=== PATIENT | male | born 1975 | race Caucasian/White ===

== ENCOUNTER 2023-05-11 21:09 | Observation (INO) | payer BC ==
[2023-05-11 22:17] LABS: Basophils # (A) 0.1 k/uL (0-0.2); Basophils % (A) 1 %; Eosinophils # (A) 0.4 k/uL (0-0.7); Eosinophils % (A) 7 %; HCT 38.1 % (39.0-53.0); Lymphocytes # (A) 1.2 k/uL (1.0-4.8); Lymphocytes % (A) 19 %; MCH 30.6 pg (25.0-35.0); MCHC 34.2 g/dL (31.0-37.0); MCV 89.2 fL (80.0-100.0); Mean Platelet Volume 8.9; Monocytes # (A) 0.4 k/uL (0-1.0); Monocytes % (A) 6 %; Neutrophils # (A) 4.2 k/uL (1.3-7.7); Neutrophils % (A) 65 %; Platelet Count 208 k/uL (150-450); RBC 4.27 m/uL (4.30-5.90); RDW 12.2 % (11.5-15.5); WBC 6.4 k/uL (3.8-10.6)
[2023-05-11 22:29] LABS: ALT 27 U/L (4-49); African American GFR (CKD) 25 (>60 ml/min/1.73 sqM); Albumin 4.1 g/dL (3.5-5.0); Anion Gap 13 mmol/L; Blood Urea Nitrogen 67 mg/dL (9-20); Calcium 8.9 mg/dL (8.4-10.2); Carbon Dioxide 17 mmol/L (22-30); Chloride 109 mmol/L (98-107); Glucose 186 mg/dL (74-99); Non-African American GFR(CKD) 22 (>60 ml/min/1.73 sqM); Sodium 139 mmol/L (137-145); Total Bilirubin 0.5 mg/dL (0.2-1.3); Total Protein 7.1 g/dL (6.3-8.2)
[2023-05-11 22:34] LABS: AST 32 U/L (17-59); Alkaline Phosphatase 106 U/L (38-126); Potassium 5.9 mmol/L (3.5-5.1)
[2023-05-11] MEDS ORDERED: SODIUM CHLORIDE 0.9% 1,000 ML IV STA (23:17)
--- NOTE | 2023-05-11 23:17 | ED ---
General Adult HPI - General Source: patient Mode of arrival: ambulatory Limitations: no limitations <Jaylon Harper - Last Filed: 05/11/23 23:18> <Luis Eduardo Lobo - Last Filed: 05/12/23 02:48> - General Chief complaint: Recheck/Abnormal Lab/Rx Stated complaint: Abn Labs, High Potassium Time Seen by Provider: 05/11/23 23:18 - History of Present Illness Initial comments: 48-year-old male presenting to the ED with a chief complaint of abnormal labs. Patient states that he was at his PCPs office getting regular blood work performed and was told that his potassium was high and also was told that his kidney function was decreased and was advised to present to the ED for further evaluation. Patient states that he otherwise feels well and does not have any symptoms and would not have otherwise came to the ED. (Jaylon Harper) Dictation was produced using [employer] dictation software. please excuse any grammatical, word or spelling errors. Chief Complaint: 48-year-old male presents to the ER for abnormal outpatient labs History of Present Illness: Is a 48-year-old male presents to the emergency room for abnormal outpatient labs. Patient denies any symptoms at this time. This morning he had a follow-up appointment with his primary care doctor. He had blood drawn. Patient was called at 7 PM by his primary care doctor told to come to the ER for elevated potassium with the level of 7. Patient has any bradycardia he's been checking his heart rate at home. He has no symptoms whatsoever. Denies any lightheadedness or any pain complaints. Patient denies any use of diuretics The ROS documented in this emergency department record has been reviewed and c onfirmed by me. Those systems with pertinent positive or negative responses have been documented in the HPI. All other systems are other negative and/or noncontributory. (Luis Eduardo Lobo) - Related Data Allergies Allergy/AdvReac Type Severity Reaction Status Date / Time morphine Allergy Itching Verified 05/11/23 21:23 Review of Systems ROS Other: All systems not noted in ROS Statement are negative. <Jaylon Harper - Last Filed: 05/11/23 23:18> ROS Other: All systems not noted in ROS Statement are negative. <Luis Eduardo Lobo - Last Filed: 05/12/23 02:48> ROS Statement: Those systems with pertinent positive or pertinent negative responses have been documented in the HPI. Past Medical History Past Medical History: Diabetes Mellitus, Hypertension History of Any Multi-Drug Resistant Organisms: None Reported Past Surgical History: Cholecystectomy Past Psychological History: No Psychological Hx Reported Smoking Status: Vaper Past Alcohol Use History: None Reported Past Drug Use History: None Reported <Jaylon Harper - Last Filed: 05/11/23 23:18> General Exam Limitations: no limitations General appearance: alert, in no apparent distress Eye exam: Present: normal appearance Extremities exam: Present: normal inspection Back exam: Present: normal inspection <Jaylon Harper - Last Filed: 05/11/23 23:18> <Luis Eduardo Lobo - Last Filed: 05/12/23 02:48> - General Exam Comments Initial Comments: PHYSICAL EXAM: General Impression: Alert and oriented x3, not in acute distress HEENT: Normocephalic atraumatic, extra-ocular movements intact, pupils equal and reactive to light bilaterally, mucous membranes moist. Cardiovascular: Heart regular rate and rhythm Chest: Able to complete full sentences, no retractions, no tachypnea Abdomen: abdomen soft, non-tender, non-distended, no organomegaly Musculoskeletal: Pulses present and equal in all extremities, no peripheral edema Motor: no focal deficits noted Neurological: CN II-XII grossly intact, no focal motor or sensory deficits noted Skin: Intact with no visualized rashes Psych: Normal affect and mood (Luis Eduardo Lobo) Course Vital Signs 05/11/23 21:20 Temperature 98.8 F Pulse Rate 86 Respiratory 18 Rate Blood Pressure 222/132 O2 Sat by Pulse 99 Oximetry EKG Findings - EKG Comments: EKG Findings:: My EKG interpretation: Ventricular rate 82, sinus rhythm, MS interval 162, QRS 90, QTC 390. No MS prolongation, no QTC prolongation, no ST or T-wave changes noted. Overall, this EKG is unremarkable <Luis Eduardo Lobo - Last Filed: 05/12/23 02:48> Medical Decision Making - Lab Data Result diagrams: 05/11/23 21:54 05/11/23 21:54 <Jaylon Harper - Last Filed: 05/11/23 23:18> - Lab Data Result diagrams: 05/11/23 21:54 05/12/23 00:34 <YamilLuis Eduardo D - Last Filed: 05/12/23 02:48> - Medical Decision Making Was pt. sent in by a medical professional or institution ([facility], [facility]ER[facility], urgent care, hospital, or residential...) When possible be specific @ -No Did you speak to anyone other than the patient for history (EMS, parent, family, police, friend...)? What history was obtained from this source @ -No Did you review nursing and triage notes (agree or disagree)? Why? @ -I reviewed and agree with nursing and triage notes Were old charts reviewed (outside hosp., previous admission, EMS record, old E KG, old radiological studies, urgent care reports/EKG's, residential records)? Report findings @ -No old charts were reviewed Differential Diagnosis (chest pain, altered mental status, abdominal pain women, abdominal pain men, vaginal bleeding, musculoskeletal, weakness, fever, dyspnea, syncope, headache, dizziness, GI bleed, back pain, seizure, CVA, palpatations, mental health)? @ -not applicable EKG interpreted by me (3pts min.). @ -None done X-rays interpreted by me (1pt min.). @ -None done CT interpreted by me (1pt min.). @ -None done U/S interpreted by me (1pt. min.). @ -None done What testing was considered but not performed or refused? (CT, X-rays, U/S, labs)? Why? @ -None What meds were considered but not given or refused? Why? @ -None Did you discuss the management of the patient with other professionals (professionals i.e. [facility], [facility]ERTER, lab, RT, psych nurse, director social, overhauler bus truck, teacher, training and development officer, protective services case worker)? Give summary @ -No Was smoking cessation discussed for >3mins.? @ -No Was critical care preformed (if so, how long)? @ -No Were there social determinants of health that impacted care today? How? (Homelessness, low income, unemployed, alcoholism, drug addiction, transportation, low edu. Level, literacy, decrease access to med. care, [facility], rehab)? @ -No Was there de-escalation of care discussed even if they declined (Discuss DNR or withdrawal of care, Hospice)? DNR status @ -No What co-morbidities impacted this encounter? (DM, HTN, Smoking, COPD, CAD, Canc er, CVA, ARF, Chemo, Hep., AIDS, mental health diagnosis, sleep apnea, morbid obesity)? @ -None Was patient admitted / discharged? Hospital course, mention meds given and route, prescriptions, significant lab abnormalities, going to OR and other pertinent info. @ -48-year-old male presents emergency Department with abnormal outpatient labs. He is told that he had a potassium of 7.0. He has been having worsening kidney function over the last several months. Laboratory evaluation obtained. CBC unremarkable. Potassium level V.9 with slight hemolysis. He does have a mild non-gap acidosis. Renal function is significantly elevated. No old labs for comparison. Repeat potassium is 5.9. Disposition options are discussed. Patient agreeable for observation admission for potassium monitoring along with nephrology consultation. Undiagnosed new problem with uncertain prognosis? @ -No Drug Therapy requiring intensive monitoring for toxicity (Heparin, Nitro, Insulin, Cardizem)? @ -No Were any procedures done? @ -No Diagnosis/symptom? Acute, or Chronic, or Acute on Chronic? Uncomplicated (without systemic symptoms) or Complicated (systemic symptoms)? @ -Hyperkalemia, danii Side effects of treatment? @ -No Exacerbation, Progression, or Severe Exacerbation? @ -No Poses a threat to life or bodily function? How? (Chest pain, [place], DC, pneumonia, PE, COPD, DKA, ARF, appy, cholecystitis, CVA, Diverticulitis, Homicidal, Suicidal, threat to staff... and all critical care pts) @ -yes (Luis Eduardo Lobo) - Lab Data Lab Results 05/11/23 05/11/23 05/12/23 Range/Units 21:54 21:54 00:34 WBC 6.4 (3.8-10.6) k/uL RBC 4.27 L (4.30-5.90) m/uL Hgb 13.0 (13.0-17.5) gm/dL Hct 38.1 L (39.0-53.0) % MCV 89.2 (80.0-100.0) fL MCH 30.6 (25.0-35.0) pg MCHC 34.2 (31.0-37.0) g/dL RDW 12.2 (11.5-15.5) % Plt Count 208 (150-450) k/uL MPV 8.9 Neutrophils % 65 % Lymphocytes % 19 % Monocytes % 6 % Eosinophils % 7 % Basophils % 1 % Neutrophils # 4.2 (1.3-7.7) k/uL Lymphocytes # 1.2 (1.0-4.8) k/uL Monocytes # 0.4 (0-1.0) k/uL Eosinophils # 0.4 (0-0.7) k/uL Basophils # 0.1 (0-0.2) k/uL Sodium 139 (137-145) mmol/L Potassium 5.9 H 5.9 H (3.5-5.1) mmol/L Chloride 109 H (98-107) mmol/L Carbon Dioxide 17 L (22-30) mmol/L Anion Gap 13 mmol/L BUN 67 H (9-20) mg/dL Creatinine 3.22 H (0.66-1.25) mg/dL Est GFR (CKD-EPI)AfAm 25 (>60 ml/min/1.73 sqM) Est GFR (CKD-EPI)NonAf 22 (>60 ml/min/1.73 sqM) Glucose 186 H (74-99) mg/dL Calcium 8.9 (8.4-10.2) mg/dL Total Bilirubin 0.5 (0.2-1.3) mg/dL AST 32 (17-59) U/L ALT 27 (4-49) U/L Alkaline Phosphatase 106 (38-126) U/L Total Protein 7.1 (6.3-8.2) g/dL Albumin 4.1 (3.5-5.0) g/dL Disposition <Jaylon Harper - Last Filed: 05/11/23 23:18> Decision Time: 02:00 <Luis Eduardo Lobo - Last Filed: 05/12/23 02:48> Clinical Impression: DANII (acute kidney injury) Disposition: ADMITTED IP TO THIS HOSP Condition: Fair Referrals: Timothy Fox MD [Primary Care Provider] - 1-2 days
[2023-05-12 01:32] LABS: Potassium 5.9 mmol/L (3.5-5.1)
[2023-05-12] MEDS ORDERED: SODIUM ZIRCONIUM CYCLOSILICATE 10 GM PACKET PO ONE (02:22)
[2023-05-12] MEDS ORDERED: FUROSEMIDE 10 MG/ML 2 ML VIAL IV STA (02:22)
[2023-05-12] MEDS ORDERED: NALOXONE 0.4 MG/ML 1 ML VIAL IV PRN (02:45)
[2023-05-12] MEDS: SODIUM CHLORIDE 0.9% 1,000 ML IV SCH (03:20)
[2023-05-12 06:34] LABS: Glucose,Whole Blood 88 mg/dL (70-110)
[2023-05-12] MEDS ORDERED: ACETAMINOPHEN TAB 325 MG TAB PO PRN (09:26)
[2023-05-12] MEDS ORDERED: ONDANSETRON 4 MG/2 ML VIAL IVP PRN (09:26)
[2023-05-12] MEDS ORDERED: SODIUM BICARB 8.4% 50 ML SYR (1 MEQ/ML) IV ONE (09:29)
[2023-05-12] MEDS ORDERED: CALCIUM GLUCONATE IN NACL 1 GM in SALINE 1 100ML.BAG IVPB ONE (09:29)
[2023-05-12] MEDS ORDERED: DEXTROSE 50% SYRINGE 50 ML IVP ONE (09:29)
[2023-05-12] MEDS ORDERED: INSULIN REGULAR 100 UNIT/ML VIAL (IV) IV ONE (09:29)
[2023-05-12 10:24] LABS: ALT 26 U/L (4-49); AST 26 U/L (17-59); African American GFR (CKD) 26 (>60 ml/min/1.73 sqM); Albumin 3.5 g/dL (3.5-5.0); Albumin/Globulin Ratio 1.3; Alkaline Phosphatase 95 U/L (38-126); Anion Gap 11 mmol/L; Blood Urea Nitrogen 68 mg/dL (9-20); Calcium 8.5 mg/dL (8.4-10.2); Carbon Dioxide 17 mmol/L (22-30); Chloride 112 mmol/L (98-107); Globulin 2.8 g/dL; Glucose 135 mg/dL (74-99); Magnesium 1.3 mg/dL (1.6-2.3); Non-African American GFR(CKD) 22 (>60 ml/min/1.73 sqM); Sodium 140 mmol/L (137-145); Total Bilirubin 0.3 mg/dL (0.2-1.3); Total Protein 6.3 g/dL (6.3-8.2)
--- NOTE | 2023-05-12 11:21 | US ---
EXAMINATION TYPE: US kidneys/renal and bladder DATE OF EXAM: 05/12/2023 COMPARISON: NONE CLINICAL INDICATION: Male, 48 years old with history of Renal failure; Abnormal labs EXAM MEASUREMENTS: Right Kidney: 10.4 x 5.7 x 5.9 cm Left Kidney: 12.1 x 5.6 x 6.0 cm *Pt morbidly obese- difficult to penetrate* Right Kidney: No evidence of hydro- possible "sweat sign" anterior to kidney Left Kidney: No evidence of hydro- possible "sweat sign" anterior to kidney Bladder: Unable to visualize- pt voided IMPRESSION: 1. Subtle secondary changes to suggest underlying renal failure. 2. No acute ultrasound abnormality identified.
[2023-05-12 11:40] LABS: African American GFR (CKD) 27 (>60 ml/min/1.73 sqM); Anion Gap 10 mmol/L; Blood Urea Nitrogen 67 mg/dL (9-20); Calcium 8.3 mg/dL (8.4-10.2); Carbon Dioxide 18 mmol/L (22-30); Chloride 111 mmol/L (98-107); Glucose 165 mg/dL (74-99); Non-African American GFR(CKD) 23 (>60 ml/min/1.73 sqM); Potassium 5.2 mmol/L (3.5-5.1); Sodium 139 mmol/L (137-145)
[2023-05-12 11:45] LABS: Glucose,Whole Blood 139 mg/dL (70-110)
--- NOTE | 2023-05-12 12:03 | P.NPCON ---
History of Present Illness - Reason for Consult acute renal failure - History of Present Illness Patient is a 48-year-old male with history of hypertension diagnosed about 3-4 years ago. Patient states that he has had a week kidney function for about 1-2 years. He was advised to come into the hospital as his renal function had worsened and potassium was elevated at 5.9 mg/L. Serum creatinine was 3.2 and it is down to 3.0 today. Previous labs not available for comparison however patient states that his kidney function was around 30 (eGFR) about 3-6 months ago. No history of use of NSAIDs No history of nausea vomiting abdominal pain or diarrhea No significant prostatic issues No family history of kidney diseases Patient has not seen a electronic publishing specialist previously. Blood pressure was high on admission. Ultrasound shows no evidence of obstruction. Kidneys are fairly good sized. Review of Systems As per HPI other systems negative Past Medical History Past Medical History: Diabetes Mellitus, Hypertension History of Any Multi-Drug Resistant Organisms: None Reported Past Surgical History: Cholecystectomy Past Psychological History: No Psychological Hx Reported Smoking Status: Vaper Past Alcohol Use History: None Reported Past Drug Use History: None Reported Medications and Allergies Home Medications Medication Instructions Recorded Confirmed Type Atorvastatin [Lipitor] 10 mg PO DAILY 05/12/23 05/12/23 History Insulin Regular, Human [Novolin R] 0.01 unit SQ-PUMP CONTINUOUS 05/12/23 05/12/23 History Metoprolol Succinate (ER) [Toprol 50 mg PO DAILY 05/12/23 05/12/23 History Xl] Triamterene-Hctz 37.5-25Mg 1 cap PO DAILY 05/12/23 05/12/23 History [Dyazide 37.5-25 Capsule] lisinopriL 40 mg PO DAILY 05/12/23 05/12/23 History Allergies Allergy/AdvReac Type Severity Reaction Status Date / Time morphine Allergy Itching Verified 05/12/23 11:28 Physical Exam Vitals: Vital Signs Temp Pulse Pulse Resp BP BP Pulse Ox 05/12/23 07:00 98 F 69 20 131/76 97 05/12/23 04:45 97.7 F 74 16 163/80 97 05/12/23 03:21 98.8 F 73 18 174/81 98 05/11/23 21:20 98.8 F 86 18 222/132 99 Intake and Output 05/11/23 05/12/2305/12/23 22:59 06:59 14:59 Intake Total 240 Balance 240 Intake: Oral 240 Other: # Voids 1 Weight 142.428 kg 142.428 kg Patient is awake, comfortable, no acute distress Examination of the heart S1 and S2 Examination of the lungs bilateral breath sounds are heard Abdomen is soft nontender obese Examination of lower extremity shows no evidence of edema DEPOSITION OPERATOR exam grossly intact Results - Lab Results Most recent lab results Calcium 8.3 mg/dL (8.4-10.2) L 05/12/23 10:43 Magnesium 1.3 mg/dL (1.6-2.3) L 05/12/23 00:34 05/11/23 21:54 05/12/23 10:43 Assessment and Plan Assessment: 1. Acute kidney injury most likely ATN. No evidence of obstruction noted on ultrasound. Check urine analysis to rule out any underlying GN. 2. Hypertension, uncontrolled on admission, now improved. 3. Chronic kidney disease stage III. Baseline renal function not available. A GFR possibly around 30 mL/min per patient. 4. Hyperkalemia associated with acute kidney injury in the setting of use of AC E inhibitor's and metabolic acidosis. 5. Hypomagnesemia Plan: Continue to hold lisinopril Low potassium diet Add oral sodium bicarb Check urine analysis Patient will need close follow-up for acute kidney injury and chronic kidney disease. We will also try to obtain previous labs to establish patient's baseline renal function. Thank you for the consultation. We will continue to follow the patient with you during his hospitalization.
[2023-05-12] MEDS: SODIUM BICARBONATE TAB 650 MG TAB PO SCH ×2 (12:53→20:14)
[2023-05-12] MEDS: METOPROLOL SUCCINATE (ER) 50 MG TAB.ER.24H PO SCH (12:53)
[2023-05-12] MEDS ORDERED: DEXTROSE 50% SYRINGE 50 ML IVP PRN ×2 (13:00)
--- NOTE | 2023-05-12 13:00 | P.HPIM ---
History of Present Illness H&P Date: 05/12/23 Chief Complaint: Abnormal labs * 48-year-old gentleman with past medical history significant for diabetes mellitus on Pump , hypertension, previous history of cholecystectomy presents to the emergency department sent in for PCP office for abnormal blood work. Patient was asked to come to the ED because of elevated potassium levels and impaired kidney function. Patient denies of any acute issues. At the time of presentation in ED he was noted to have elevated blood pressures soft 2 22 x 1 32, with a heart rate of 86 * Blood work initiated in ED included CBC which were WBC of 6.4 hemoglobin 13 platelet count of 208 * Serum sodium of 139 potassium of 5.9, chloride 109, [place] 17 B UN 67 creatinine 3.22 * Liver profile was obtained which showed AST of 32 AST 27 total protein 7.1 albumin 4.1 * While in ER patient was given 1 L of fluid bolus, patient given low, as well a s Lasix * he admitted as observation with consultation obtained from nephrology REVIEW OF SYSTEMS: CONSTITUTIONAL: No fever, no malaise, no fatigue. HEENT: No recent visual problems or hearing problems. Denied any sore throat. CARDIOVASCULAR: No chest pain, orthopnea, PND, no palpitations, no syncope. PULMONARY: No shortness of breath, no cough, no hemoptysis. GASTROINTESTINAL: No diarrhea, no nausea, no vomiting, no abdominal pain. NEUROLOGICAL: No headaches, no weakness, no numbness. HEMATOLOGICAL: Denies any bleeding or petechiae. GENITOURINARY: Denies any burning micturition, frequency, or urgency. MUSCULOSKELETAL/RHEUMATOLOGICAL: Denies any joint pain, swelling, or any muscle pain. ENDOCRINE: Denies any polyuria or polydipsia. PHYSICAL EXAMINATION: GENERAL: The patient is alert and oriented x3, not in any acute distress. Well developed, well nourished. Obese HEENT: Pupils are round and equally reacting to light. EOMI. CARDIOVASCULAR: S1 and S2 present. No murmurs, rubs, or gallops. PULMONARY: Chest is clear to auscultation, no wheezing or crackles. ABDOMEN: Soft, nontender, nondistended, normoactive bowel sounds. No palpable organomegaly. MUSCULOSKELETAL: No joint swelling or deformity. EXTREMITIES: No cyanosis, clubbing, or pedal edema. NEUROLOGICAL: Gross neurological examination did not reveal any focal deficits. SKIN: No rashes. Past Medical History Past Medical History: Diabetes Mellitus, Hypertension History of Any Multi-Drug Resistant Organisms: None Reported Past Surgical History: Cholecystectomy Past Psychological History: No Psychological Hx Reported Smoking Status: Vaper Past Alcohol Use History: None Reported Past Drug Use History: None Reported Medications and Allergies Home Medications Medication Instructions Recorded Confirmed Type Atorvastatin [Lipitor] 10 mg PO DAILY 05/12/23 05/12/23 History Insulin Regular, Human [Novolin R] 0.01 unit SQ-PUMP CONTINUOUS 05/12/23 05/12/23 History Metoprolol Succinate (ER) [Toprol 50 mg PO DAILY 05/12/23 05/12/23 History Xl] Triamterene-Hctz 37.5-25Mg 1 cap PO DAILY 05/12/23 05/12/23 History [Dyazide 37.5-25 Capsule] lisinopriL 40 mg PO DAILY 05/12/23 05/12/23 History Allergies Allergy/AdvReac Type Severity Reaction Status Date / Time morphine Allergy Itching Verified 05/12/23 11:28 Physical Exam Vitals: Vital Signs Temp Pulse Pulse Resp BP BP Pulse Ox 05/12/23 07:00 98 F 69 20 131/76 97 05/12/23 04:45 97.7 F 74 16 163/80 97 05/12/23 03:21 98.8 F 73 18 174/81 98 05/11/23 21:20 98.8 F 86 18 222/132 99 Intake and Output 05/11/23 05/12/23 05/12/23 22:59 06:59 14:59 Other: # Voids 1 Weight 142.428 kg 142.428 kg Results CBC & Chem 7: 05/11/23 21:54 05/12/23 10:43 Labs: Abnormal Lab Results - Last 24 Hours (Table) 05/11/23 05/11/23 05/12/23 Range/Units 21:54 21:54 00:34 RBC 4.27 L (4.30-5.90) m/uL Hct 38.1 L (39.0-53.0) % Potassium 5.9 H 5.9 H (3.5-5.1) mmol/L Chloride 109 H (98-107) mmol/L Carbon Dioxide 17 L (22-30) mmol/L BUN 67 H (9-20) mg/dL Creatinine 3.22 H (0.66-1.25) mg/dL Glucose 186 H (74-99) mg/dL Thrombosis Risk Factor Assmnt - DVT/VTE Prophylaxis DVT/VTE Prophylaxis: Mechanical Prophylaxis ordered Assessment and Plan Assessment: Assessment and plan Acute renal failure Hyperkalemia Hypertensive urgency History of diabetes mellitus 2 * In regards to renal failure, continue to monitor intake and output, bladder scan ordered, results unknown ordered, follow-up on renal profile, nephrology consulted * In regards to hyperkalemia, patient given Lasix, lokelma follow-up potassium ordered * In regards to hypertensive urgency patient given a dose of Lasix in ED, follow blood pressure improved * In regards to diabetes mellitus follow-up HbA1c ordered Accu-Cheks before meals at bedtime continue patient on correctional insulin * CODE STATUS is full code Time with Patient: Greater than 30
[2023-05-12 17:37] LABS: Glucose,Whole Blood 80 mg/dL (70-110)
[2023-05-12] MEDS: INSULIN ASPART (NovoLOG) 100 UNIT/ML VIAL SQ SCH ×2 (18:18→20:59)
[2023-05-12 18:54] LABS: RBC,Urine <1 /hpf (0-5); WBC,Urine 1 /hpf (0-5)
[2023-05-12 18:55] LABS: Appearance,Urine Clear (Clear); Color,Urine Colorless; Specific Gravity,Urine 1.015 (1.001-1.035)
[2023-05-12 18:56] LABS: Bilirubin,Urine Negative (Negative); Blood,Urine Small (Negative); Glucose,Urine (UA) Negative (Negative); Ketones,Urine Negative (Negative); Leukocyte Esterase,Urine Negative (Negative); Nitrite,Urine Negative (Negative); Protein,Urine 2+ (Negative); Urobilinogen,Urine <2.0 mg/dL (<2.0)
[2023-05-12 20:58] LABS: Glucose,Whole Blood 120 mg/dL (70-110)
[2023-05-13] MEDS: SODIUM CHLORIDE 0.9% 1,000 ML IV SCH (03:09)
[2023-05-13 06:14] LABS: Glucose,Whole Blood 115 mg/dL (70-110)
[2023-05-13] MEDS: INSULIN ASPART (NovoLOG) 100 UNIT/ML VIAL SQ SCH ×2 (06:18→13:48)
[2023-05-13] MEDS: SODIUM BICARBONATE TAB 650 MG TAB PO SCH (08:37)
[2023-05-13] MEDS: METOPROLOL SUCCINATE (ER) 50 MG TAB.ER.24H PO SCH (08:37)
[2023-05-13 09:46] LABS: Basophils # (A) 0.06 X 10*3/uL (0.00-0.10); Basophils % (A) 1.1 %; Eosinophils # (A) 0.41 X 10*3/uL (0.04-0.35); Eosinophils % (A) 7.2 %; HCT 35.4 % (39.6-50.0); HGB 11.8 g/dL (13.0-17.0); Lymphocytes % (A) 21.2 %; MCH 29.4 pg (27.0-32.0); MCHC 33.3 g/dL (32.0-37.0); MCV 88.3 FL (80.0-97.0); Mean Platelet Volume 12.1 FL (9.5-12.2); Monocytes # (A) 0.57 X 10*3/uL (0.20-1.00); Monocytes % (A) 10.1 %; NRBC Per 100 WBC 0 X 10*3/uL (0.00-0.01); Neutrophils # (A) 3.39 X 10*3/uL (1.80-7.70); Neutrophils % (A) 59.9 %; Platelet Count 199 X 10*3/uL (140-440); RBC 4.01 X 10*6/uL (4.40-5.60); RDW 12.1 % (11.5-14.5); WBC 5.66 X 10*3/uL (4.50-10.00)
[2023-05-13 11:45] LABS: Glucose,Whole Blood 172 mg/dL (70-110)
--- NOTE | 2023-05-13 12:18 | P.PN ---
Subjective Patient is seen for follow-up for acute kidney injury. He does have underlying chronic kidney disease however previous labs are not available for comparison. Workup showed 2+ proteinuria on UA. Currently maintained on IV fluids. Labs are pending from today. Patient wants to go home. Objective - Vital Signs Vital signs: Vital Signs Temp 98.2 F 05/13/23 07:00 Pulse 76 05/13/23 07:00 Resp 18 05/13/23 07:00 BP 163/83 05/13/23 07:00 Pulse Ox 97 05/13/23 07:00 FiO2 Intake & Output 05/12/23 05/13/23 05/13/23 18:59 06:59 18:59 Intake Total 720 240 Balance 720 240 Intake: Oral 720 240 Other: # Voids 1 1 - Exam Patient is awake, comfortable, no acute distress Examination of the heart S1 and S2 Examination of the lungs bilateral breath sounds are heard Abdomen is soft nontender obese Examination of lower extremity shows no evidence of edema EQUIPMENT SUPERINTENDENT exam grossly intact - Labs CBC & Chem 7: 05/13/23 05:59 05/12/23 10:43 Labs: Abnormal Lab Results - Last 24 Hours (Table) 05/12/23 05/12/23 05/12/23 Range/Units 10:43 17:27 20:56 RBC (4.40-5.60) X 10*6/uL Hgb (13.0-17.0) g/dL Hct (39.6-50.0) % Eosinophils # (0.04-0.35) X 10*3/uL POC Glucose (mg/dL) 120 H (70-110) mg/dL Hemoglobin A1c 7.9 H (<=6.0) % Urine Protein 2+ H (Negative) 05/13/23 05/13/23 05/13/23 Range/Units 05:59 06:12 11:43 RBC 4.01 L (4.40-5.60) X 10*6/uL Hgb 11.8 L (13.0-17.0) g/dL Hct 35.4 L (39.6-50.0) % Eosinophils # 0.41 H (0.04-0.35) X 10*3/uL POC Glucose (mg/dL) 115 H 172 H (70-110) mg/dL Hemoglobin A1c (<=6.0) % Urine Protein (Negative) Assessment and Plan Assessment: 1. Acute kidney injury most likely ATN on top of underlying GN given the significant proteinuria. No evidence of obstruction noted on ultrasound. . 2. Hypertension, uncontrolled on admission, now improved. 3. Chronic kidney disease stage III. Baseline renal function not available. A GFR possibly around 30 mL/min per patient. 4. Hyperkalemia associated with acute kidney injury in the setting of use of ALEKSANDR inhibitor's and metabolic acidosis. 5. Hypomagnesemia Plan: Continue to hold lisinopril Low potassium diet Continue oral sodium bicarb Check serologies for workup of proteinuria Patient can be discharged from nephrology standpoint and follow-up as outpatient in about 1 week's time. Possible need for kidney biopsy was discussed with the patient. We will also try to obtain previous labs from PCP to assess patient's baseline renal function.
[2023-05-13 12:47] LABS: Blood Urea Nitrogen 59.4 mg/dL (9.0-27.0); Calcium 8.7 mg/dL (8.7-10.3); Carbon Dioxide 18.8 mmol/L (21.6-31.8); Chloride 109 mmol/L (96-109); Glucose 115 mg/dL (70-110); Potassium 5.4 mmol/L (3.5-5.5); Sodium 138 mmol/L (135-145)
[2023-05-13] MEDS ORDERED: DEXTROSE 50% SYRINGE 50 ML IVP ONE (12:49)
[2023-05-13] MEDS ORDERED: INSULIN REGULAR 100 UNIT/ML VIAL (IV) IV ONE (12:49)
[2023-05-13] MEDS ORDERED: SODIUM BICARB 8.4% 50 ML SYR (1 MEQ/ML) IV ONE (12:49)
--- NOTE | 2023-05-13 12:53 | P.PN ---
Subjective Progress Note Date: 05/13/23 * 48-year-old gentleman with past medical history significant for diabetes mellitus on Pump , hypertension, previous history of cholecystectomy presents to the emergency department sent in for PCP office for abnormal blood work. Patient was asked to come to the ED because of elevated potassium levels and impaired kidney function. Patient denies of any acute issues. At the time of presentation in ED he was noted to have elevated blood pressures soft 2 22 x 1 32, with a heart rate of 86 * Blood work initiated in ED included CBC which were WBC of 6.4 hemoglobin 13 platelet count of 208 * Serum sodium of 139 potassium of 5.9, chloride 109, [place] 17 B UN 67 creatinine 3.22 * Liver profile was obtained which showed AST of 32 AST 27 total protein 7.1 albumin 4.1 * While in ER patient was given 1 L of fluid bolus, patient given low, as well as Lasix * he admitted as observation with consultation obtained from nephrology * 05/13/2023: Patient seen and evaluated bedside, care plan discussed with patient. Follow-up blood work reviewed sodium 138 potassium 5.4 carbon dioxide 18 BUNs 15 and creatinine 3 blood glucose under and 15 calcium 8.7, patient to be given insulin, dextrose, sodium bicarbonate and follow potassium levels to be checked a potassium level improving patient to be discharged home later REVIEW OF SYSTEMS: CONSTITUTIONAL: No fever, no malaise, no fatigue. HEENT: No recent visual problems or hearing problems. Denied any sore throat. CARDIOVASCULAR: No chest pain, orthopnea, PND, no palpitations, no syncope. PULMONARY: No shortness of breath, no cough, no hemoptysis. GASTROINTESTINAL: No diarrhea, no nausea, no vomiting, no abdominal pain. NEUROLOGICAL: No headaches, no weakness, no numbness. HEMATOLOGICAL: Denies any bleeding or petechiae. GENITOURINARY: Denies any burning micturition, frequency, or urgency. MUSCULOSKELETAL/RHEUMATOLOGICAL: Denies any joint pain, swelling, or any muscle pain. ENDOCRINE: Denies any polyuria or polydipsia. PHYSICAL EXAMINATION: See vitals GENERAL: The patient is alert and oriented x3, not in any acute distress. Well developed, well nourished. Obese HEENT: Pupils are round and equally reacting to light. EOMI. CARDIOVASCULAR: S1 and S2 present. No murmurs, rubs, or gallops. PULMONARY: Chest is clear to auscultation, no wheezing or crackles. ABDOMEN: Soft, nontender, nondistended, normoactive bowel sounds. No palpable organomegaly. MUSCULOSKELETAL: No joint swelling or deformity. EXTREMITIES: No cyanosis, clubbing, or pedal edema. NEUROLOGICAL: Gross neurological examination did not reveal any focal deficits. SKIN: No rashes. Assessment and plan Acute renal failure Metabolic acidosis Hyperkalemia Hypertensive urgency History of diabetes mellitus 2 * In regards to renal failure, continue to monitor intake and output, patient input from nephrology, workup ordered including complements, AMA, anti-dsDNA, hepatitis screening, antimyeloperoxidase * In regards to hyperkalemia, patient was given Lasix, lokelma in ED>> follow- up potassium elevated 05/13, we'll follow-up after correction given * In regards to hypertensive urgency patient given a dose of Lasix in ED, follow blood pressure improved * In regards to diabetes mellitus follow-up HbA1c 7.9, ordered Accu-Cheks before meals at bedtime continue patient on correctional insulin Objective - Vital Signs Vital signs: Vital Signs Temp 98.2 F 05/13/23 07:00 Pulse 76 05/13/23 07:00 Resp 18 05/13/23 07:00 BP 163/83 05/13/23 07:00 Pulse Ox 97 05/13/23 07:00 FiO2 Intake & Output 05/12/23 05/13/23 05/13/23 18:59 06:59 18:59 Intake Total 720 240 Balance 720 240 Intake: Oral 720 240 Other: # Voids 1 1 - Labs CBC & Chem 7: 05/13/23 05:59 05/13/23 05:59 Labs: Abnormal Lab Results - Last 24 Hours (Table) 05/12/23 05/12/23 05/12/23 Range/Units 10:43 17:27 20:56 RBC (4.40-5.60) X 10*6/uL Hgb (13.0-17.0) g/dL Hct (39.6-50.0) % Eosinophils # (0.04-0.35) X 10*3/uL Carbon Dioxide (21.6-31.8) mmol/L BUN (9.0-27.0) mg/dL Creatinine (0.6-1.5) mg/dL Est GFR (CKD-EPI) (>=60) Glucose (70-110) mg/dL POC Glucose (mg/dL) 120 H (70-110) mg/dL Hemoglobin A1c 7.9 H (<=6.0) % Urine Protein 2+ H (Negative) 05/13/23 05/13/23 05/13/23 Range/Units 05:59 05:59 06:12 RBC 4.01 L (4.40-5.60) X 10*6/uL Hgb 11.8 L (13.0-17.0) g/dL Hct 35.4 L (39.6-50.0) % Eosinophils # 0.41 H (0.04-0.35) X 10*3/uL Carbon Dioxide 18.8 L (21.6-31.8) mmol/L BUN 59.4 H (9.0-27.0) mg/dL Creatinine 3.0 H (0.6-1.5) mg/dL Est GFR (CKD-EPI) 25 L (>=60) Glucose 115 H (70-110) mg/dL POC Glucose (mg/dL) 115 H (70-110) mg/dL Hemoglobin A1c (<=6.0) % Urine Protein (Negative) 05/13/23 Range/Units 11:43 RBC (4.40-5.60) X 10*6/uL Hgb (13.0-17.0) g/dL Hct (39.6-50.0) % Eosinophils # (0.04-0.35) X 10*3/uL Carbon Dioxide (21.6-31.8) mmol/L BUN (9.0-27.0) mg/dL Creatinine (0.6-1.5) mg/dL Est GFR (CKD-EPI) (>=60) Glucose (70-110) mg/dL POC Glucose (mg/dL) 172 H (70-110) mg/dL Hemoglobin A1c (<=6.0) % Urine Protein (Negative)
[2023-05-13 15:00] VITALS: BP 143/82; PULSE 82; RESP 20; TEMP 98
[2023-05-13 17:21] LABS: Glucose,Whole Blood 172 mg/dL (70-110)
[2023-05-13] MEDS ORDERED: amLODIPine 5 MG TAB PO SCH (18:00)
--- NOTE | 2023-05-13 18:01 | P.DS ---
Providers Date of admission: 05/12/23 02:46 Expected date of discharge: 05/13/23 Attending physician: George Cowart Consults: 05/12/23 02:45 Consult Physician Routine Consulting Provider: Rocio Andrews Consult Reason/Comments: richard Do you want consulting provider notified?: Yes Primary care physician: Timothy Marion Hospital Course: 48-year-old gentleman with past medical history significant for diabetes mellitus on Pump , hypertension, previous history of cholecystectomy presents to the emergency department sent in for PCP office for abnormal blood work. Patient was asked to come to the ED because of elevated potassium levels and impaired kidney function. Patient denies of any acute issues. At the time of presentation in ED he was noted to have elevated blood pressures soft 2 22 x 1 32, with a heart rate of 86 * Blood work initiated in ED included CBC which were WBC of 6.4 hemoglobin 13 platelet count of 208 * Serum sodium of 139 potassium of 5.9, chloride 109, [place] 17 B UN 67 creatinine 3.22 * Liver profile was obtained which showed AST of 32 AST 27 total protein 7.1 albumin 4.1 * While in ER patient was given 1 L of fluid bolus, patient given low, as well as Lasix * he admitted as observation with consultation obtained from nephrology * 05/13/2023: Patient seen and evaluated bedside, care plan discussed with patient. Follow-up blood work reviewed sodium 138 potassium 5.4 carbon dioxide 18 BUNs 15 and creatinine 3 blood glucose under and 15 calcium 8.7, patient to be given insulin, dextrose, sodium bicarbonate and follow potassium levels to be checked a potassium level improving patient to be discharged home later REVIEW OF SYSTEMS: PHYSICAL EXAMINATION: See vitals GENERAL: The patient is alert and oriented x3, not in any acute distress. Well developed, well nourished. Obese HEENT: Pupils are round and equally reacting to light. EOMI. CARDIOVASCULAR: S1 and S2 present. No murmurs, rubs, or gallops. PULMONARY: Chest is clear to auscultation, no wheezing or crackles. ABDOMEN: Soft, nontender, nondistended, normoactive bowel sounds. No palpable organomegaly. MUSCULOSKELETAL: No joint swelling or deformity. EXTREMITIES: No cyanosis, clubbing, or pedal edema. NEUROLOGICAL: Gross neurological examination did not reveal any focal deficits. SKIN: No rashes. Assessment and plan Acute renal failure Metabolic acidosis Hyperkalemia IMPROVED Hypertensive urgency History of diabetes mellitus 2 * In regards to renal failure, continue to monitor intake and output, patient input from nephrology, workup ordered including complements, AMA, anti-dsDNA, hepatitis screening, antimyeloperoxidase * In regards to hyperkalemia, patient was given Lasix, lokelma in ED>> follow- up potassium elevated 05/13, we'll follow-up after correction given, IMPROVED 5.2 >> CLEARED BY NEPRHOLOGY * In regards to hypertensive urgency patient given a dose of Lasix in ED, follow blood pressure improved, , START NORVASC, DC HCTZ AND LISINOPRIL * In regards to diabetes mellitus follow-up HbA1c 7.9, CONTINUE PUMP Patient Condition at Discharge: Fair Plan - Discharge Summary New Discharge Prescriptions: New amLODIPine [Norvasc] 5 mg PO DAILY 30 Days #30 tab Sodium Bicarbonate Tab 650 mg PO BID 30 Days #60 tab Continue Metoprolol Succinate (ER) [Toprol XL] 50 mg PO DAILY Insulin Regular, Human [Novolin R] 0.01 unit SQ-PUMP CONTINUOUS Atorvastatin [Lipitor] 10 mg PO DAILY Discontinued Triamterene-Hctz 37.5-25Mg [Dyazide 37.5-25 Capsule] 1 cap PO DAILY lisinopriL 40 mg PO DAILY Discharge Medication List Atorvastatin [Lipitor] 10 mg PO DAILY 05/12/23 [History] Insulin Regular, Human [Novolin R] 0.01 unit SQ-PUMP CONTINUOUS 05/12/23 [History] Metoprolol Succinate (ER) [Toprol XL] 50 mg PO DAILY 05/12/23 [History] Sodium Bicarbonate Tab 650 mg PO BID 30 Days #60 tab 05/13/23 [Rx] amLODIPine [Norvasc] 5 mg PO DAILY 30 Days #30 tab 05/13/23 [Rx] Follow up Appointment(s)/Referral(s): Rocio Andrews MD [STAFF PHYSICIAN] - 1 Week Timothy Fox MD [Primary Care Provider] - 1-2 days Discharge Disposition: HOME SELF-CARE
[2023-05-13 23:03] LABS: Creatinine,Urine Random 65.8 mg/dL (39.0-259.0)
[2023-05-13 23:20] LABS: Hepatitis B Surface AB- Quant 3.5 mIU/mL; Hepatitis B Surface Antigen Nonreactive; Hepatitis C IgG Antibody Nonreactive
[2023-05-15 13:21] LABS: C-ANCA <1:20 Titer (<1:20)
[2023-05-17 22:37] LABS: Anti-DNA, DS unit <1.0 IU/mL; DNA Double-Stranded Negative (Negative)
== END 2023-05-13 18:34 | disposition home or self-care (01) ==
LOC: EC 21:09 → 6NMEDSUR 05-12 02:46
PROVIDERS: ADMIT Hospitalist; ATTEND Hospitalist
DX: N17.9 Acute kidney failure, unspecified (principal); E87.5 Hyperkalemia; I16.0 Hypertensive urgency; E87.20 Acidosis, unspecified; I12.9 Hypertensive chronic kidney disease with stage 1 through stage 4 chronic kidney disease, or unspecified chronic kidney disease; N18.30 Chronic kidney disease, stage 3 unspecified; E11.22 Type 2 diabetes mellitus with diabetic chronic kidney disease; E83.42 Hypomagnesemia; F17.290 Nicotine dependence, other tobacco product, uncomplicated; Z79.4 Long term (current) use of insulin; Z79.899 Other long term (current) drug therapy; Z88.5 Allergy status to narcotic agent; Z96.41 Presence of insulin pump (external) (internal); Z90.49 Acquired absence of other specified parts of digestive tract
CPT/HCPCS: 96375; 96361; 96374; 99285; 36415 ×2; 93005; 86255; 86160 ×2; 86803; 86162; 82570; 80053 ×2; 80048 ×2; 84156; 83735; 84132; 85025 ×2; 86706; 87340; 81001; 83516; 86038; 86225; 83036 ×2; 76770; G0378 ×2; J1940